=== PATIENT | male | born 2000 | race Two or more races ===

== ENCOUNTER 2023-11-22 13:57 | Emergency (ER) | payer MEDICAID, OTHER ==
[~2023-11-22] VITALS: Ht 180.3 cm; Wt 83.9 kg
[2023-11-22 19:05] VITALS: BP 138/84; PULSE 65; RESP 14; TEMP 98.2; O2SAT 100
[2023-11-22] MEDS ORDERED: CLIN1CAP70 PO (19:35)
[2023-11-22] MEDS ORDERED: SULF400T11 PO (19:35)
[2023-11-22] MEDS ORDERED: IBUP-1455 PO (19:36)
[2023-11-22] MEDS: SULFAMETHOX W/TRIMETH(800/160MG) DS TAB PO ONE (20:02)
[2023-11-22] MEDS: CLINDAMYCIN HCL 150 MG CAP PO ONE (20:02)
== END 2023-11-22 20:15 | disposition home or self-care (01) ==
LOC: ER 13:57
DX: L02.411 Cutaneous abscess of right axilla (principal); Z88.6 Allergy status to analgesic agent
CPT/HCPCS: 10060